=== PATIENT | male | born 1940 | race Caucasian/White ===

== ENCOUNTER 2018-03-10 16:37 | Observation (INO) | payer MEDICARE, OTHER ==
[2018-03-10] MEDS ORDERED: Diltiazem IV* 5 MG/ML 5 ML VIAL (for loading dose/IV Push) (25 MG) IV SLOW PU ONE (17:02)
[2018-03-10] MEDS: NS 0.9% 1000 ML* 2,000 ML IV ONE ×2 (17:29→17:50)
[2018-03-10 17:50] LABS: ABS Basophils 0.1 10^3/ul (0-0.2); ABS Eosinophils 0.3 10^3/ul (0-0.6); ABS Lymphocytes 3.2 10^3/ul (1.0-4.8); ABS Monocytes 0.8 10^3/ul (0-0.8); ABS Neutrophils 4.5 10^3/ul (1.5-7.7); ABS Nucleated RBC 0 10^3/ul; Eosinophil % 3.1 % (0-6); Hematocrit 45 % (42-52); Hemoglobin 15.4 g/dl (14.0-18.0); Lymphocyte % 36.3 % (25-47); Mean Corpuscular HGB Conc 34 g/dl (31-36); Mean Corpuscular Hemoglobin 32 pg (27-31); Mean Corpuscular Volume 93 fL (80-94); Mean Platelet Volume 8.3 um3 (7.4-10.4); Nucleated Red Blood Cells % 0; Platelet Count 211 10^3/ul (150-450); Red Blood Count 4.88 10^6/ul (4.0-5.4); Red Cell Distribution Width 13 % (10.5-15); White Blood Count 8.8 10^3/ul (3.5-10.8)
[2018-03-10 17:59] LABS: INR 0.91 (0.77-1.02)
--- NOTE | 2018-03-10 18:16 | RAD ---
Indication: Tachycardia. Comparison: No relevant prior exams available on the [facility] for comparison. Technique: Upright AP 1733 hours Report: Clear lungs and pleural spaces. Negative for pneumothorax. The heart, pulmonary vasculature, and mediastinal contours are unremarkable. Unremarkable osseous structures and soft tissue contours. IMPRESSION: No evidence for acute intrathoracic disease.
[2018-03-10 18:22] LABS: EGFR Non-African American 64.1 (>60)
[2018-03-10] MEDS ORDERED: Ondansetron ODT TAB* 4 MG PO PRN (19:48)
[2018-03-10] MEDS ORDERED: Potassium Chlor TAB* 20 MEQ TAB.ER PO ONE (19:48)
[2018-03-10] MEDS ORDERED: Acetaminophen TAB* 325 MG PO PRN (19:48)
[2018-03-10] MEDS ORDERED: Dextrose 50% Syringe 50 ML* 25 GM/50 ML SYRINGE IV PUSH PRN (19:48)
--- NOTE | 2018-03-10 21:48 | ED ---
Bro Garcia Stephanie, scribed for Rico Banks MD on 03/10/18 at 1703 . HPI Cardiac - HPI Summary HPI Summary: The pt is a 77 y/o M presenting to the ED with c/o intermittent palpitations that began earlier today. Symptoms include increased HR. He denies CP and SOB. The pt takes 2, 325 mg aspirin every 24 hours for fibromyalgia. - History of Current Complaint Stated Complaint: RAPID HR Time Seen by Provider: 03/10/18 16:51 Hx Obtained From: Patient Onset/Duration: Started Hours Ago, Still Present Timing: Intermittent Current Severity: Mild Pain Intensity: 0 Pain Scale Used: 0-10 Numeric Aggravating Factor(s): Nothing Alleviating Factor(s): Nothing Associated Signs and Symptoms: Positive: Palpitations, Other: - increased HR. Negative: Chest Pain, Shortness of Breath - Allergy/Home Medications Allergies/Adverse Reactions: Allergies Allergy/AdvReac Type Severity Reaction Status Date / Time bee venom protein (honey bee) Allergy Unknown Verified 03/10/18 16:56 Reaction Details Home Medications: Home Medications Aspirin TAB* [Aspirin 325 MG TAB*] 650 mg PO BID PRN 03/10/18 [History Confirmed 03/10/18] Cholecalciferol TAB* [Vitamin D TAB*] 1,000 unit PO DAILY 03/10/18 [History Confirmed 03/10/18] Multivitamins/Minerals TAB* [Theragran/minerals TAB*] 1 tab PO DAILY 03/10/18 [ History Confirmed 03/10/18] metFORMIN* [Glucophage 500 MG TAB *] 500 mg PO BID 03/10/18 [History Confirmed 03/10/18] PMH/Surg Hx/FS Hx/Imm Hx Endocrine/Hematology History: Reports: Hx Diabetes Cardiovascular History: Reports: Other Cardiovascular Problems/Disorders - murmur Musculoskeletal History: Reports: Hx Fibromyalgia Psychiatric History: Reports: Hx Post Traumatic Stress Disorder - Surgical History Surgery Procedure, Year, and Place: NONE - Family History Known Family History: Negative: Renal Disease - Social History Occupation: Employed Full-time Lives: With Family Review of Systems Negative: Fever Positive: Palpitations, Other - increased HR. Negative: Chest Pain Negative: Shortness Of Breath All Other Systems Reviewed And Are Negative: Yes Physical Exam - Summary Physical Exam Summary: General: well-appearing, no pain distress Skin: warm, color reflects adequate perfusion, dry Head: normal Eyes: EOMI, GLORIA ENT: normal Neck: supple, nontender Respiratory: CTA, breath sounds present Cardiovascular: rapid HR, irregularly irregular Abdomen: soft, nontender Bowel: present Musculoskeletal: normal, strength/ROM intact Neurological: normal, sensory/motor intact, A&O x3 Psychological: affect/mood appropriate Triage Information Reviewed: Yes Vital Signs On Initial Exam: Initial Vitals Resp 19 03/10/18 16:48 Vital Signs Reviewed: Yes Diagnostics - Vital Signs Vital Signs Temp Pulse Resp BP Pulse Ox 03/10/18 19:27 116 18 143/105 96 03/10/18 19:00 86 17 95 03/10/18 18:57 98 18 126/83 96 03/10/18 18:27 86 14 141/91 93 03/10/18 18:23 82 15 139/88 93 03/10/18 18:13 79 20 122/83 97 03/10/18 18:03 87 13 142/90 98 03/10/18 18:00 77 11 98 03/10/18 17:53 83 14 135/88 97 03/10/18 17:43 84 20 127/82 98 03/10/18 17:36 89 03/10/18 17:21 19 151/116 03/10/18 17:00 126 13 100 03/10/18 16:50 103 16 160/114 100 03/10/18 16:49 97.6 F 126 18 160/114 100 03/10/18 16:48 19 - Laboratory Lab Results: Lab Results 03/10/18 03/10/18 03/10/18 Range/Units 17:36 17:36 17:36 WBC (3.5-10.8) 10^3/ul RBC (4.0-5.4) 10^6/ul Hgb (14.0-18.0) g/dl Hct (42-52) % MCV (80-94) fL MCH (27-31) pg MCHC (31-36) g/dl RDW (10.5-15) % Plt Count (150-450) 10^3/ul MPV (7.4-10.4) um3 Neut % (Auto) (38-83) % Lymph % (Auto) (25-47) % Page % (Auto) (0-7) % Eos % (Auto) (0-6) % Baso % (Auto) (0-2) % Absolute Neuts (auto) (1.5-7.7) 10^3/ul Absolute Lymphs (auto) (1.0-4.8) 10^3/ul Absolute Monos (auto) (0-0.8) 10^3/ul Absolute Eos (auto) (0-0.6) 10^3/ul Absolute Basos (auto) (0-0.2) 10^3/ul Absolute Nucleated RBC 10^3/ul Nucleated RBC % INR (Anticoag Therapy) 0.91 (0.77-1.02) APTT 31.1 (26.0-36.3) seconds D-Dimer, Quantitative < 200 (Less Than 230) ng/mL Sodium 140 (139-145) mmol/L Potassium 3.7 (3.5-5.0) mmol/L Chloride 104 (101-111) mmol/L Carbon Dioxide 25 (22-32) mmol/L Anion Gap 11 (2-11) mmol/L BUN 18 (6-24) mg/dL Creatinine 1.11 (0.67-1.17) mg/dL Est GFR ( Amer) 82.4 (>60) Est GFR (Non-Af Amer) 64.1 (>60) BUN/Creatinine Ratio 16.2 (8-20) Glucose 110 H (70-100) mg/dL Lactic Acid (0.5-2.0) mmol/L Calcium 9.5 (8.6-10.3) mg/dL Magnesium 2.2 (1.9-2.7) mg/dL Total Bilirubin 0.50 (0.2-1.0) mg/dL AST 22 (13-39) U/L ALT 17 (7-52) U/L Alkaline Phosphatase 78 (34-104) U/L Total Creatine Kinase 41 (10-223) U/L CK-MB (CK-2) 2.0 (0.6-6.3) ng/mL Troponin I 0.05 H* (<0.04) ng/mL C-Reactive Protein < 1.00 (< 5.00) mg/L B-Natriuretic Peptide 153 H ( - 100) pg/mL Total Protein 8.0 (6.4-8.9) g/dL Albumin 4.4 (3.2-5.2) g/dL Globulin 3.6 (2-4) g/dL Albumin/Globulin Ratio 1.2 (1-3) Lipase 10 L (11.0-82.0) U/L TSH 1.94 (0.34-5.60) mcIU/mL Salicylates < 2.50 (<30) mg/dL Acetaminophen < 15 mcg/mL Serum Alcohol < 10 (<10) mg/dL 03/10/18 03/10/18 Range/Units 17:36 17:37 WBC 8.8 (3.5-10.8) 10^3/ul RBC 4.88 (4.0-5.4) 10^6/ul Hgb 15.4 (14.0-18.0) g/dl Hct 45 (42-52) % MCV 93 (80-94) fL MCH 32 H (27-31) pg MCHC 34 (31-36) g/dl RDW 13 (10.5-15) % Plt Count 211 (150-450) 10^3/ul MPV 8.3 (7.4-10.4) um3 Neut % (Auto) 51.1 (38-83) % Lymph % (Auto) 36.3 (25-47) % Page % (Auto) 8.8 H (0-7) % Eos % (Auto) 3.1 (0-6) % Baso % (Auto) 0.7 (0-2) % Absolute Neuts (auto) 4.5 (1.5-7.7) 10^3/ul Absolute Lymphs (auto) 3.2 (1.0-4.8) 10^3/ul Absolute Monos (auto) 0.8 (0-0.8) 10^3/ul Absolute Eos (auto) 0.3 (0-0.6) 10^3/ul Absolute Basos (auto) 0.1 (0-0.2) 10^3/ul Absolute Nucleated RBC 0 10^3/ul Nucleated RBC % 0 INR (Anticoag Therapy) (0.77-1.02) APTT (26.0-36.3) seconds D-Dimer, Quantitative (Less Than 230) ng/mL Sodium (139-145) mmol/L Potassium (3.5-5.0) mmol/L Chloride (101-111) mmol/L Carbon Dioxide (22-32) mmol/L Anion Gap (2-11) mmol/L BUN (6-24) mg/dL Creatinine (0.67-1.17) mg/dL Est GFR ( Amer) (>60) Est GFR (Non-Af Amer) (>60) BUN/Creatinine Ratio (8-20) Glucose (70-100) mg/dL Lactic Acid 1.7 (0.5-2.0) mmol/L Calcium (8.6-10.3) mg/dL Magnesium (1.9-2.7) mg/dL Total Bilirubin (0.2-1.0) mg/dL AST (13-39) U/L ALT (7-52) U/L Alkaline Phosphatase (34-104) U/L Total Creatine Kinase (10-223) U/L CK-MB (CK-2) (0.6-6.3) ng/mL Troponin I (<0.04) ng/mL C-Reactive Protein (< 5.00) mg/L B-Natriuretic Peptide ( - 100) pg/mL Total Protein (6.4-8.9) g/dL Albumin (3.2-5.2) g/dL Globulin (2-4) g/dL Albumin/Globulin Ratio (1-3) Lipase (11.0-82.0) U/L TSH (0.34-5.60) mcIU/mL Salicylates (<30) mg/dL Acetaminophen mcg/mL Serum Alcohol (<10) mg/dL Result Diagrams: 03/10/18 17:36 03/10/18 17:36 Lab Statement: Any lab studies that have been ordered have been reviewed, and results considered in the medical decision making process. - Radiology CXR Xray Interpretation: No Acute Changes Radiology Interpretation Completed By: Radiologist - No evidence for acute intrathoracic disease. ED physician has reviewed this report. - EKG 17:12 Cardiac Rate: Tachycardia - 138 BPM EKG Rhythm: Atrial Fibrillation - Rapid ST Segment: Normal Disposition - Course Course Of Treatment: ADMIT HOSPITALIST. CRITICAL CARE TIME LESS THAN 30 MINUTES. - Diagnoses Provider Diagnoses: New onset a-fib - Physician Notifications Discussed Care Of Patient With: Sara Reid Time Discussed With Above Provider: 18:40 Instructed by Provider To: Admit As Inpatient Discharge - Sign-Out/Discharge Documenting (check all that apply): Discharge/Admit/Transfer - Discharge Plan Condition: Stable Disposition: ADMITTED TO [facility] - Billing Disposition and Condition Condition: STABLE Disposition: [facility]P-[facility] [place] The documentation as recorded by the Bro terry Stephanie accurately reflects the service I personally performed and the decisions made by me, Rico Banks MD.
[2018-03-10] MEDS: Apixaban* 5 MG TAB PO SCH (22:03)
[2018-03-10] MEDS: Diltiazem TAB* 30 MG PO SCH (22:04)
[2018-03-11] MEDS: Diltiazem TAB* 30 MG PO SCH ×4 (01:32→18:27)
--- NOTE | 2018-03-11 04:21 | HP ---
CC: Luisana Viveros NP; Dr. Antonio Sanchez; Dr. Tang * HISTORY AND PHYSICAL: DATE OF ADMISSION: 03/10/18 PRIMARY CARE PROVIDER: Luisana Viveros NP and Dr. Atnonio Sanchez. CONSULTING STEAM [employer] G[employer] TURBINE ASSEMBLER: Dr. Tang. ATTENDING PHYSICIAN WHILE IN THE HOSPITAL: Dr. Karla West * (report dictated by Errol Lopez NP). CHIEF COMPLAINT: 1. Palpitations. 2. Rapid heart rate. HISTORY OF PRESENTING ILLNESS: Mr. Bourgeois is a 77-year-old male patient who carries a history of diabetes. He has a history of being worked up for fibromyalgia and a history of basal cell skin cancer. He comes into the ER today. He was at the [facility] today for a routine medical visit. He was noted there to tell his PCP that he was having some palpitations. On evaluation there, it was noted that his heart rate was quite fast. A 12-lead EKG was obtained and it was noted that he was in AFib with RVR. In talking with him, he says this episode started around 1600 when he was in the office, but he says he has had intermittent episodes for the last several weeks and they have mostly happened at night. He denies having any chest pain. He denies having any shortness of breath. No orthopnea. He denies any leg swelling. Denies any recent trips or travel. Denies having any shortness of breath with exertion or chest pain with exertion. He is fairly active. He can walk up a flight of stairs. He has not been having any chest discomfort. He has just been noticing palpitations sometimes at night and he was again found today to be in AFib with RVR. He was sent to the ER and because of this we were asked to evaluate for admission. PAST MEDICAL HISTORY: Significant for: 1. Diabetes. 2. Working diagnosis of fibromyalgia. 3. History of basal cell skin cancer. PAST SURGICAL HISTORY: 1. The patient has had an eye surgery. 2. He has had an appendectomy. HOME MEDICATIONS: According to the list obtained include: 1. Metformin 500 mg p.o. b.i.d. 2. Multivitamin 1 tablet daily. 3. Aspirin 650 mg p.o. twice a day as needed. 4. Vitamin D 1000 units p.o. daily. ALLERGIES: Allergies to medications include none. He is allergic to BEE VENOM. FAMILY HISTORY: Both his parents are diabetic. SOCIAL HISTORY: He works with [employer]. Surrogate decision maker is his . He does not smoke. He does not drink alcohol. REVIEW OF SYSTEMS: There is no documented fever. He denies having any significant weight change. There was no double vision. There was no ear discharge. Denies having any rhinorrhea. There was no sore throat. No thyroid enlargement. Denied any chest pain. There was no orthopnea. There was no nocturnal dyspnea. No abdominal pain, no nausea, no vomiting. No dysuria, no frequency. No seizure. No loss of consciousness. No pruritus and no skin ulcerations. Review of 14 systems completed, all others were negative. PHYSICAL EXAMINATION GENERAL: At this time, Mr. Bourgeois is a 77-year-old male patient, appears to be well nourished, well developed. He is sitting in the ED stretcher. He does not appear to be in acute distress. VITAL SIGNS: Blood pressure 126/83, his pulse was 100, respirations were 18, O2 sat 96%, temperature 97.6. HEENT: Head atraumatic and normocephalic. Eyes: EOMs are intact. Sclerae are anicteric and not pale. Throat: Oral mucosa appears to be moist. No oropharyngeal erythema. NECK: Supple. LUNGS: Clear to auscultation. No wheezes, rales, or rhonchi. HEART: Sounds S1, S2. Irregularly irregular rate. He did have a grade 2 to 3/ 6 systolic murmur in the aortic listening area. No rubs or gallops. ABDOMEN: Soft, it was flat, nontender. Bowel sounds were present. EXTREMITIES: Pulses were 2+ throughout. Moving all 4 extremities with 5/5 strength. NEUROLOGICAL: The patient is awake, he is alert, he is oriented x3. Tongue midline. Supervisor [employer] Drilling were equal. He had no gross focal deficits. SKIN: Intact. DIAGNOSTIC STUDIES/LABORATORY DATA: WBC of 8.9, RBC of 4.8, hemoglobin of 15.4 , hematocrit of 45, and platelet count of 211. INR was 0.91, PTT of 31.1, D- dimer less than 200. The sodium was 140, potassium was 3.7, chloride of 104, bicarb of 25, BUN 18, creatinine 1.11, glucose of 110, lactate 1.7, calcium 9.5 , mag 2.0. Total bili 0.5, AST 23, ALT 17, alk phos 78. CK 41, CK-MB 2, troponin 0.05, CRP less than 1. BNP 153. Albumin of 4.4. TSH was normal. Lipase was normal. Toxicology was negative. He did have a chest x-ray obtained today, impression: No evidence for acute intrathoracic disease. He had an EKG obtained today, I do not have a previous workup for comparison, but it did show atrial fibrillation with a rate of 138. No ST elevations or T-wave inversions were noted. Old medical records were reviewed. ASSESSMENT AND PLAN: Mr. Bourgeois is a 77-year-old male patient coming into the emergency room today with complaints of palpitations. On evaluation found to be in atrial fibrillation with rapid ventricular response. He will be admitted under observation status for: 1. Atrial fibrillation with rapid ventricular response. Etiology is unclear. I am going to try to get his potassium around 4. Magnesium was stable. I have made him n.p.o. for possible TIP-guided cardioversion in the morning. I did touch base with Cardiology. I am going to go ahead and put him on diltiazem 30 mg every 6 hours. His heart rate now is around 100 with IV bolus. I am hopeful with p.o. medications, this will continue to keep him in a controlled rate. We will start him on Eliquis. Again, we will order the possible TIP- guided cardioversion tomorrow. In addition to this, we will go ahead and make him n.p.o. after midnight and we will continue to follow. 2. Elevated troponin. This is probably demand ischemia from the atrial fibrillation with rapid ventricular response. We will trend these. 3. Diabetes. He will be on lispro sliding scale. 4. History of fibromyalgia, which is a working diagnosis. He has got Rheumatology followup for 03/20/18; he will keep this. 5. Skin cancer. Follow up with primary care physician. 6. DVT prophylaxis. He will be on Eliquis. 7. Code status: Full code. 8. Fluids, electrolytes, nutrition: He can have a heart healthy diet up until midnight and he will be n.p.o. after midnight. TIME SPENT: On the admission was 60 minutes; greater than half the time was spent [id number] with the patient obtaining my history and physical, other half the time was spent going over the plan of care with the patient and implementing plan of care. I did discuss the plan of care with my attending, Dr. West; she is in agreement. ERROL LOPEZ, LAYLA [id number]/[facility] #: [id number] FLY
[2018-03-11] MEDS: Insulin LISPRO* 1 UNITS UNIT SUBCUT SCH ×3 (07:26→19:49)
[2018-03-11 07:32] LABS: ABS Basophils 0.1 10^3/ul (0-0.2); ABS Eosinophils 0.5 10^3/ul (0-0.6); ABS Lymphocytes 3.9 10^3/ul (1.0-4.8); ABS Monocytes 0.8 10^3/ul (0-0.8); ABS Neutrophils 4.1 10^3/ul (1.5-7.7); ABS Nucleated RBC 0 10^3/ul; Eosinophil % 4.9 % (0-6); Hematocrit 39 % (42-52); Hemoglobin 13.3 g/dl (14.0-18.0); Lymphocyte % 41.7 % (25-47); Mean Corpuscular HGB Conc 34 g/dl (31-36); Mean Corpuscular Hemoglobin 31 pg (27-31); Mean Corpuscular Volume 91 fL (80-94); Mean Platelet Volume 8.2 um3 (7.4-10.4); Nucleated Red Blood Cells % 0.1; Platelet Count 188 10^3/ul (150-450); Red Blood Count 4.26 10^6/ul (4.0-5.4); Red Cell Distribution Width 13 % (10.5-15); White Blood Count 9.3 10^3/ul (3.5-10.8)
[2018-03-11 07:51] LABS: EGFR Non-African American 70.6 (>60)
[2018-03-11 07:58] LABS: INR 1.04 (0.77-1.02)
[2018-03-11] MEDS: Apixaban* 5 MG TAB PO SCH ×2 (08:45→20:21)
[2018-03-11 10:00] LABS: Urine Appearance Clear; Urine Blood Negative (Negative); Urine Color Straw; Urine Ketones Negative (Negative); Urine Protein Negative (Negative); Urine Specific Gravity 1.005 (1.010-1.030); Urine Urobilinogen Negative (Negative)
--- NOTE | 2018-03-11 18:19 | PN ---
Subjective Date of Service: 03/11/18 Interval History: Pt felt palpitations when seeing his PCP at [facility], denies CP or SOB. Recalls feeling similar palpitations when he goes to bed several time in the past. Is unsure how long those episodes have lasted in the past. Has good exercise tolerance. Has a heart murmur, but not aware of what valve is affected. Objective Active Medications: Acetaminophen (Tylenol Tab*) 650 mg PO Q4H PRN PRN Reason: FEVER/PAIN Apixaban (Eliquis*) 5 mg PO BID [facility] Last Admin: 03/11/18 08:45 Dose: 5 mg Dextrose (D50w Syringe 50 Ml*) 12.5 gm IV PUSH .FOR FS < 60 - SS PRN PRN Reason: FS < 60 Diltiazem HCl (Cardizem Tab*) 30 mg PO Q6HR [facility] Stop: 03/11/18 23:59 Last Admin: 03/11/18 12:21 Dose: 30 mg Diltiazem HCl (Cardizem Cd Cap*) 120 mg PO DAILY [facility] Insulin Human Lispro (Humalog*) 0 units SUBCUT AC [facility] PRN Reason: Protocol Last Admin: 03/11/18 12:09 Dose: Not Given Ondansetron HCl (Zofran Odt Tab*) 4 mg PO Q6H PRN PRN Reason: NAUSEA Vital Signs - 8 hr 03/11/18 11:08 Temperature 98.0 F Pulse Rate 73 Respiratory 16 Rate Blood Pressure 113/71 (mmHg) O2 Sat by Pulse 98 Oximetry Oxygen Devices in Use Now: None Appearance: 77 yo M in nAD, AAOx3, [place] Eyes: No Scleral Icterus, PERRLA Ears/Nose/Mouth/Throat: NL Teeth, Lips, Gums, Mucous Membranes Moist Neck: NL Appearance and Movements; NL JVP, Trachea Midline Respiratory: Symmetrical Chest Expansion and Respiratory Effort, Clear to Auscultation Cardiovascular: RRR, - - 2/6 ELROY at LUSB Abdominal: NL Sounds; No Tenderness; No Distention, No Hepatosplenomegaly Lymphatic: No Cervical Adenopathy Extremities: No Edema, No Clubbing, Cyanosis Skin: No Rash or Ulcers, No Nodules or Sclerosis Neurological: Alert and Oriented x 3, NL Muscle Strength and Tone Result Diagrams: 03/11/18 07:24 03/11/18 07:24 Additional Lab and Data: Lab Results 03/10/18 03/10/18 03/10/18 Range/Units 17:36 17:36 17:36 WBC (3.5-10.8) 10^3/ul RBC (4.0-5.4) 10^6/ul Hgb (14.0-18.0) g/dl Hct (42-52) % MCV (80-94) fL MCH (27-31) pg MCHC (31-36) g/dl RDW (10.5-15) % Plt Count (150-450) 10^3/ul MPV (7.4-10.4) um3 Neut % (Auto) (38-83) % Lymph % (Auto) (25-47) % [place] % (Auto) (0-7) % Eos % (Auto) (0-6) % Baso % (Auto) (0-2) % Absolute Neuts (auto) (1.5-7.7) 10^3/ul Absolute Lymphs (auto) (1.0-4.8) 10^3/ul Absolute Monos (auto) (0-0.8) 10^3/ul Absolute Eos (auto) (0-0.6) 10^3/ul Absolute Basos (auto) (0-0.2) 10^3/ul Absolute Nucleated RBC 10^3/ul Nucleated RBC % INR (Anticoag Therapy) 0.91 (0.77-1.02) APTT 31.1 (26.0-36.3) seconds D-Dimer, Quantitative < 200 (Less Than 230) ng/mL Sodium 140 (139-145) mmol/L Potassium 3.7 (3.5-5.0) mmol/L Chloride 104 (101-111) mmol/L Carbon Dioxide 25 (22-32) mmol/L Anion Gap 11 (2-11) mmol/L BUN 18 (6-24) mg/dL Creatinine 1.11 (0.67-1.17) mg/dL Est GFR ( Amer) 82.4 (>60) Est GFR (Non-Af Amer) 64.1 (>60) BUN/Creatinine Ratio 16.2 (8-20) Glucose 110 H (70-100) mg/dL Lactic Acid (0.5-2.0) mmol/L Calcium 9.5 (8.6-10.3) mg/dL Magnesium 2.2 (1.9-2.7) mg/dL Total Bilirubin 0.50 (0.2-1.0) mg/dL AST 22 (13-39) U/L ALT 17 (7-52) U/L Alkaline Phosphatase 78 (34-104) U/L Total Creatine Kinase 41 (10-223) U/L CK-MB (CK-2) 2.0 (0.6-6.3) ng/mL Troponin I 0.05 H* (<0.04) ng/mL C-Reactive Protein < 1.00 (< 5.00) mg/L B-Natriuretic Peptide 153 H ( - 100) pg/mL Total Protein 8.0 (6.4-8.9) g/dL Albumin 4.4 (3.2-5.2) g/dL Globulin 3.6 (2-4) g/dL Albumin/Globulin Ratio 1.2 (1-3) Lipase 10 L (11.0-82.0) U/L TSH 1.94 (0.34-5.60) mcIU/mL Salicylates < 2.50 (<30) mg/dL Acetaminophen < 15 mcg/mL Serum Alcohol < 10 (<10) mg/dL 03/10/18 03/10/18 Range/Units 17:36 17:37 WBC 8.8 (3.5-10.8) 10^3/ul RBC 4.88 (4.0-5.4) 10^6/ul Hgb 15.4 (14.0-18.0) g/dl Hct 45 (42-52) % MCV 93 (80-94) fL MCH 32 H (27-31) pg MCHC 34 (31-36) g/dl RDW 13 (10.5-15) % Plt Count 211 (150-450) 10^3/ul MPV 8.3 (7.4-10.4) um3 Neut % (Auto) 51.1 (38-83) % Lymph % (Auto) 36.3 (25-47) % [place] % (Auto) 8.8 H (0-7) % Eos % (Auto) 3.1 (0-6) % Baso % (Auto) 0.7 (0-2) % Absolute Neuts (auto) 4.5 (1.5-7.7) 10^3/ul Absolute Lymphs (auto) 3.2 (1.0-4.8) 10^3/ul Absolute Monos (auto) 0.8 (0-0.8) 10^3/ul Absolute Eos (auto) 0.3 (0-0.6) 10^3/ul Absolute Basos (auto) 0.1 (0-0.2) 10^3/ul Absolute Nucleated RBC 0 10^3/ul Nucleated RBC % 0 INR (Anticoag Therapy) (0.77-1.02) APTT (26.0-36.3) seconds D-Dimer, Quantitative (Less Than 230) ng/mL Sodium (139-145) mmol/L Potassium (3.5-5.0) mmol/L Chloride (101-111) mmol/L Carbon Dioxide (22-32) mmol/L Anion Gap (2-11) mmol/L BUN (6-24) mg/dL Creatinine (0.67-1.17) mg/dL Est GFR ( Amer) (>60) Est GFR (Non-Af Amer) (>60) BUN/Creatinine Ratio (8-20) Glucose (70-100) mg/dL Lactic Acid 1.7 (0.5-2.0) mmol/L Calcium (8.6-10.3) mg/dL Magnesium (1.9-2.7) mg/dL Total Bilirubin (0.2-1.0) mg/dL AST (13-39) U/L ALT (7-52) U/L Alkaline Phosphatase (34-104) U/L Total Creatine Kinase (10-223) U/L CK-MB (CK-2) (0.6-6.3) ng/mL Troponin I (<0.04) ng/mL C-Reactive Protein (< 5.00) mg/L B-Natriuretic Peptide ( - 100) pg/mL Total Protein (6.4-8.9) g/dL Albumin (3.2-5.2) g/dL Globulin (2-4) g/dL Albumin/Globulin Ratio (1-3) Lipase (11.0-82.0) U/L TSH (0.34-5.60) mcIU/mL Salicylates (<30) mg/dL Acetaminophen mcg/mL Serum Alcohol (<10) mg/dL Assess/Plan/Problems-Billing Assessment: 77 yo M with h/o DM2, PTSD presents with a. fib-new onset - Patient Problems (1) Atrial fibrillation with rapid ventricular response Comment: resolved after cardizem tx. Cont Eliquis and Cardizem will be transitioned to CD in AM. D/w pt's and NOAC's vs Coumadin and pt and agree with Eliquis. (2) Heart murmur Comment: Echo pending (3) DM2 (diabetes mellitus, type 2) Comment: controlled on metformin as outpatient. HbA1C 6 Cont ISS for now when in hospital (4) Troponin level elevated Comment: May be related to demend ischemia secondary to a. fib with RVR. stress test ordered in aM (5) DVT prophylaxis Comment: Abbeyquis Status and Disposition: OBV
--- NOTE | 2018-03-11 19:03 | ECHO ---
Patient: CIARA LEYVA [facility] Rec#: [id number] : 1940 Date: 03/11/2018 Age: 77y Height: 175.3 cm / 69.0 in Weight: 89.8 kg / 197.9 lbs Sex: M BSA: 2.06 Room#: [facility] Admit Date#: 03/10/2018 Type: Inpatient Referring: Sara Reid MD Reading: Mary Deutsch MD Chemical Mixer: Nancy Trevizo RN RDCS CC: Luisana Viveros Transthoracic Echocardiogram Indication: Atrial fibrillation BP: 113/71 HR: 77 Rhythm: NSR Findings History: DM, HLD, cardiac murmur, fibromyalgia, PTSD Technical Comments: The study quality is fair. The study is technically limited due to patient body habitus. Left Ventricle: The left ventricular chamber size is normal. Mild concentric left ventricular hypertrophy is observed. There is increased basal septal hypertrophy noted without evidence of an increased gradient across the left ventricular outflow tract. The septal knuckle measures 1.4 cm. Global left ventricular wall motion and contractility are within normal limits. There is normal left ventricular systolic function. The estimated ejection fraction is 60-65%. The assessment of diastolic function is non-diagnostic. Left Atrium: The left atrial chamber size is normal. Right Ventricle: The right ventricular cavity size is normal. The right ventricular global systolic function is normal. Right Atrium: The right atrial cavity size is normal. Aortic Valve: The aortic valve is trileaflet. The aortic valve leaflets are moderately thickened. Systolic excursion of the aortic valve cusps is reduced. There is no evidence of aortic regurgitation. There is moderate to severe aortic stenosis. The mean gradient of the aortic valve is 31.9 mmHg. The peak instantaneous gradient of the aortic valve is 49.3 mmHg. The aortic valve area, by peak velocities, is calculated at 0.8 cm2. The aortic valve area, by VTI's, is calculated at 0.7 cm2. The dimensionless index is 0.24-0.26. Highest aortic valve velocity was acquired with Pedoff in apical position. Mitral Valve: There is posterior mitral annular calcification. The mitral valve leaflets are mildly thickened. There is mild mitral regurgitation. There is no evidence of mitral stenosis. Tricuspid Valve: The tricuspid valve leaflets are normal. There is mild to moderate tricuspid regurgitation. There is evidence of mild pulmonary hypertension. There is no tricuspid stenosis. Pulmonic Valve: The pulmonic valve structure is not well visualized. There is a trace pulmonic regurgitation. There is no pulmonic stenosis. Pericardium: There is no significant pericardial effusion. A pericardial fat pad is visualized. Aorta: There is no dilatation of the ascending aorta. There is no dilatation of the aortic arch. There is no dilation of the aortic root. Pulmonary Artery: The main pulmonary artery is not well visualized. Venous: The inferior vena cava is dilated. There is a greater than 50% respiratory change in the inferior vena cava dimension. Conclusions Mild concentric left ventricular hypertrophy is observed. The septal knuckle measures 1.4 cm. Global left ventricular wall motion and contractility are within normal limits. The estimated ejection fraction is 60-65%. The right ventricular global systolic function is normal.. There is moderate to severe aortic stenosis. The mean gradient of the aortic valve is 31.9 mmHg. The aortic valve area, by VTI's, is calculated at 0.7 cm2. The dimensionless index is 0.24-0.26. There is mild mitral regurgitation. There is mild to moderate tricuspid regurgitation. There is evidence of mild pulmonary hypertension: 37 mmHg. No prior echo to compare. Measurements Name Value Normal Range RVDdMajor (2D) 3.4 cm (2.2 - 4.4) RAd ISD 4CH 4.8 cm (3.4 - 4.9) RA (A4C)W 4.5 cm (2.9 - 4.6) IVSd (2D) 1.2 cm (0.6 - 1) LVPWd (2D) 1.2 cm (0.6 - 1) LVIDd (2D) 4.1 cm (3.6 - 5.4) LVIDs (2D) 2.1 cm - Aortic Annulus 2 cm (1.4 - 2.6) Ao root diameter (2D) 3.2 cm (2.1 - 3.5) Ascending Ao 3.3 cm (2.1 - 3.4) Aortic arch 3 cm (1.8 - 3.4) LA dimension (AP) 2D 3.6 cm (2.3 - 3.8) LAd ISD 4CH 5.2 cm (2.9 - 5.3) LA ISD 4CH W 4.6 cm (2.5 - 4.5) Name Value Normal Range LA ESV SP 4CH (A/L) 62 ml - LA ESV SP 2CH (A/L) 64 ml - LA ESV BP (A/L) 67 ml - LA ESV BP (A/L) index 32.7 ml/m2 - LA ESV SP 4CH (MOD) 55 ml - LA ESV SP 2CH (MOD) 58 ml - Name Value Normal Range MV E-wave Vmax 1.2 m/sec - MV deceleration time 244 msec - MV A-wave Vmax 0.97 m/sec - MV E:A ratio 1.3 ratio - LV septal e' Vmax 0.07 m/sec - LV lateral e' Vmax 0.09 m/sec - LV E:e' septal ratio 17.1 ratio - LV E:e' lateral ratio 13.3 ratio - Name Value Normal Range AV Vmax 3.5 m/sec - AV VTI 81.8 cm - AV peak gradient 49.3 mmHg - AV mean gradient 31.9 mmHg - LVOT diameter 2 cm - LVOT Vmax 0.92 m/sec - LVOT VTI 19.3 cm - LVOT peak gradient 3.4 mmHg - LVOT mean gradient 1.7 mmHg - DOI (VTI) 0.24 ratio - DOI (Vmax) 0.26 ratio - SV LVOT 60.6 ml - CO LVOT 4.7 l/min - Cardiac index 2.3 l/min/m2 - HENRI (continuity Vmax) 0.8 cm2 - HENRI (continuity VTI) 0.7 cm2 - JANKI Vmax 0.49 m/sec - Name Value Normal Range TR Vmax 2.7 m/sec - TR peak gradient 29 mmHg - RAP 8 mmHg - RVSP 37 mmHg - IVC diameter 2.5 cm - Name Value Normal Range PV Vmax 0.85 m/sec -
--- NOTE | 2018-03-12 06:16 | CONS ---
CC: Luisana Viveros NP, [facility]; Dr. Antonio Sanchez CARDIOLOGY CONSULTATION: DATE OF CONSULT: 03/11/18 REASON FOR CONSULT: Paroxysmal atrial fibrillation. CHIEF COMPLAINT: Pounding of the chest. HISTORY OF PRESENT ILLNESS: Mr. Bourgeois is a 77-year-old who told me he was at the [facility] for a routine visit today. He put his hand on his chest while there and noted that he had a prominent rapid pounding type of heartbeat and he asked his caregiver Luisana Viveros about it and found he was in atrial fibrillation with a rapid ventricular rate. The patient noticed some awareness of rapid pounding in the heart at night when he lies down for several weeks. The patient denies any exercise intolerance or changes, orthopnea, or PND, and he denies any recent changes in his medication or routine. The patient denies any active smoking, alcohol intake, or dfwa-vgx-zojtosm medications around the time of this event. PAST MEDICAL HISTORY: The patient has a past medical history of: 1. Diabetes. 2. 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 3. PTSD. 4. Murmur heard by Luisana Viveros. PAST SURGICAL HISTORY: Includes eye surgery and appendectomy. MEDICATIONS: Outpatient medications include: 1. Metformin. 2. MultiVites. 3. Aspirin. 4. Vitamin D. Current inpatient medications include: 1. Tylenol. 2. Eliquis 5 mg b.i.d. 3. Cardizem 30 mg q.6 hours. 4. Cardizem CD 120 mg a day. 5. Humalog insulin. 6. Zofran p.r.n. 7. He has had potassium replacement. ALLERGIES: Include BEE VENOM. FAMILY HISTORY: Significant that both parents are . He has 1 brother with a pacemaker and possibly with AFib. SOCIAL HISTORY: The patient was in the [employer]. Nonsmoker, nondrinker. Lives with his . REVIEW OF SYSTEMS: Significant that he says he does not sleep well, but relates this to his PTSD, says this is mild. He denies any history of apnea or snoring. He denies chest pain, pressure, heaviness, orthopnea, PND, recent cough , fevers, chills, sweats, changes in bowel or habit habits. No recent weight gain or loss. All other 14-point review of systems was unremarkable. PHYSICAL EXAM: On exam, the patient is 5 feet 9 inches, weighs 198 pounds with a BMI of 29. Vital Signs: On admission yesterday, blood pressure 160/114, pulse was 135, oxygen saturation 100%, and afebrile. Current vital signs: In sinus rhythm, blood pressure 113/70, pulse is 73, respiratory rate 16, temperature 98.0. General Appearance: Somewhat overweight, older gentleman lying at 5 degrees, in no acute distress. Psychologically, pleasant and cooperative. Neurologically, a bit hard of hearing but awake, alert, and oriented to person, place, and time. Cranial nerves II through XII grossly intact. Grossly normal sensory and motor function in the upper and lower extremities. He moves normally in the bed. Skin: Age appropriate changes. Warm, dry. No cyanosis or rashes. HEENT: Pupils are equal and round. Mucous membranes moist. Neck: Without increased JVP appreciated. No lymphadenopathy or thyromegaly. Breath sounds clear with good effort. No wheezes, rales, or rhonchi. Coronary: S1, S2, regular with a late peaking systolic murmur heard best in the upper sternal border with radiation across the precordium. S2 is heard. Abdomen: Overweight, active bowel sounds, soft, nontender. No hepatosplenomegaly, masses, or bruits. He has strong femoral pulses free of bruits. Lower extremities are warm and free of edema. DIAGNOSTIC STUDIES/LAB DATA: White count 9.3, hemoglobin 13.3, hematocrit 39, platelets 188, mild increase in monos. INR 1.04, PTT 31. Sodium 139, potassium 4.3, chloride 111, bicarb 23, glucose 100, BUN 16, creatinine 1.01. Hemoglobin A1c of 6. Calcium 8.9. Magnesium 2.0, AST 22, ALT 17. Troponin #1 , 0.05; troponin #2, 0.06; troponin #3, 0.06; and troponin #4, 0.04. Total cholesterol 167, triglycerides 189, LDL cholesterol 100, and HDL cholesterol 29. TSH 1.94. Urinalysis unremarkable. Toxicology was negative for salicylates, acetaminophen or alcohol. The patient's echocardiogram showed left ventricular hypertrophy with an ejection fraction of 60% to 65% with oflacvmp-to-stgezg aortic stenosis, mean gradient 32 mmHg, aortic valve area 0.7 cm squared and dimensionless index 0.24 to 0.26, mild mitral insufficiency, bkse-vd-pjxdysyd tricuspid insufficiency, and PA pressure 37 mmHg. ECG on admission to the ED on 03/10/18 at 1700 showed atrial fibrillation with a ventricular rate of 138 beats per minute, QRS axis of +30, normal intraventricular conduction times, and nonspecific unremarkable ST changes. A 12-lead ECG done this morning at 0631, 03/11/18, shows normal sinus rhythm at 75 beats per minute, QRS axis +30, normal AV and IV conduction times, and normal ST. Chest x-ray report from 03/10/18 showed no acute disease. IMPRESSION AND PLAN: In summary, Mr. Bourgeois is a 77-year-old gentleman who was admitted with atrial fibrillation with a rapid ventricular rate with only mild symptoms and he converted on his own. He has hsttlrmk-kd-xmxxqz aortic valve stenosis and left ventricular hypertrophy. With respect to the atrial fibrillation, I agree with the initiation of anticoagulation as the patient's CHADS score is at least 2 based on age and hypertension. Addition of regular calcium channel dajuan for control of blood pressure and ectopy I think is a good idea and could be continued, although a beta-dajuan would be another option and may be better tolerated with aortic stenosis. In terms of factors that contribute to his atrial fibrillation, they include his age, likely his valvular heart disease as well. For now, we can try calcium and/or beta-blockers with Eliquis, but if he has recurrent atrial fibrillation as an outpatient, a stronger antiarrhythmic may need to be considered. With respect to the aortic stenosis, it is not critical but this gentleman's valve is getting quite tight. His dimensionless index is at criteria for replacement. The patient's elevated troponins are noted. It could represent underlying atherosclerotic heart disease but could also represent decreased cardiac output and inadequate cardiovascular perfusion due to a combination of atrial fibrillation and aortic stenosis. Going forward in addition to the above, I recommend a stress test not only to look for the possibility of ischemia but also to look at the patient's blood pressure response with his aortic stenosis to ensure that it is increasing. If he has a drop in blood pressure with his usual activity, this would support earlier valve replacement. Additional recommendations can be made following his clinical course and response to the above medication adjustments. [id number]/[facility] #: [id number] FLY
[2018-03-12] MEDS: Insulin LISPRO* 1 UNITS UNIT SUBCUT SCH ×2 (08:14→12:14)
[2018-03-12] MEDS: Apixaban* 5 MG TAB PO SCH (08:24)
[2018-03-12] MEDS ORDERED: Diltiazem CD CAP* 120 MG PO SCH (09:00)
[2018-03-12] MEDS ORDERED: Metoprolol Succinate XL TAB* 25 MG PO SCH (09:00)
--- NOTE | 2018-03-12 11:06 | RAD ---
Edited for charges. INDICATION: Elevated troponins. COMPARISON: There are no prior studies available for comparison. Technique: A single day myocardial perfusion stress study was performed. Initially a resting study was performed. The patient was given an intravenous injection of 10.2 mCi of technetium 99m tetrofosmin and and the heart was imaged in multiple projections. The patient returned later in the day and under the direction of Dr. Nicholson, the patient was exercised to a peak heart rate of 133 beats per minute which was 94 % of the maximum predicted heart rate. Subsequently the patient was given intravenous injection of 25.4 mCi of technetium 99m tetrofosmin and the heart was imaged in multiple projections. Images were reconstructed in the axial, sagittal and coronal planes and in a 3- D format. FINDINGS: There appears to be normal wall motion and myocardial thickening. The left ventricular ejection fraction was calculated to be 63%. No significant focal perfusion defects are seen. IMPRESSION: NO EVIDENCE FOR INFARCT OR ISCHEMIA. ASSESSMENT: Low risk. Based on imaging criteria from ACC/AHA 2002 Guideline Update for the Management of Patients With Chronic Stable Angina Table 23. Noninvasive Risk Stratification. MTDD
[2018-03-12 12:17] VITALS: BP 136/78
--- NOTE | 2018-03-13 05:16 | DS ---
CC: Luisana Viveros NP; Dr. Antonio Sanchez, [place], [place] * DISCHARGE SUMMARY: DATE OF ADMISSION: 03/10/18 DATE OF DISCHARGE: 03/12/18 PRIMARY CARE PROVIDER: Luisana Viveros NP. DISCHARGE DIAGNOSIS: 1. Atrial fibrillation with rapid ventricular response. Patient is converted to sinus rhythm after treatment with Cardizem. 2. Sehpddhl-df-bihmwn aortic stenosis. SECONDARY DIAGNOSES: 1. Diabetes type 2. 2. History of fibromyalgia. 3. History of basal cell skin cancer. 4. History of eye surgery. 5. Appendectomy. MEDICATIONS AT DISCHARGE: Include: 1. Metformin 500 mg b.i.d. 2. Multivitamins 1 tablet daily. 3. Vitamin D 1000 units daily. 4. Eliquis 5 mg b.i.d. 5. Toprol-XL 25 mg daily. Patient is also advised to use instead of 2 tablets of aspirin that he was before for his pain to switch to Tylenol up to 1000 mg twice a day for his chronic pain. LABORATORY DATA AND STUDIES PERFORMED DURING THE HOSPITAL STAY: Included: On , white blood cell count of 9.3, hemoglobin of 13.3, hematocrit 39, MCV of 91, and platelets of 188. The D-dimer was below 200 at admission. On , sodium of 139, potassium 4.3, chloride 111, carbon dioxide 23, BUN 16, creatinine 1.02. Patient's troponin was ranging from 0.04 to 0.06. Patient's hemoglobin A1c was 6.0. Cholesterol profile showed triglycerides of 189, total cholesterol of 167, LDL of 100, HDL of 29. Patient's TSH was 1.9, documented on 03/10/18. Patient's magnesium level was 2.2 at admission. CONSULTATIONS DURING THE HOSPITAL STAY: Included Dr. Deutsch from Cardiology. Patient's transesophageal echocardiogram obtained on 03/11/18 showed mild left concentric LVH with a septal knuckle measuring 1.4 cm. Global left ventricular wall motion and contractility within normal limits with EF of 60% to 65%. The mean gradient of the aortic valve is 31.9 mmHg. There is aylamiyo-oe-lvkhic aortic stenosis. The aortic valve area calculated at 0.7 cm squared. The dimension index is 0.24 to 0.26. There was mild mitral regurgitation and moderate tricuspid regurgitation and mild pulmonary hypertension at 37 mmHg. Cardiac stress test documented on 03/12/18 showed no evidence of infarct or ischemia, low risk with EF at stress calculated at 63%. The treadmill portion of the stress test also showed good exercise tolerance in the lower limit but aches in joints and no evidence of ischemic changes on the EKG. HOSPITALIZATION COURSE: Adan Bourgeois is a 77-year-old male who was for his routine 6 months appointment at the [facility] with Luisana Viveros NP, when he was noted to have palpitations and his EKG showed atrial fibrillation with rapid ventricular response in the 150s. Patient stated that he would have palpitations like that occasionally for the past several months at least. He was unsure of the duration. He never complained of chest pain. He presented to the ED with AFib with rapid ventricular response, was placed on IV Cardizem and then on p.o. Cardizem. He converted shortly after admission to normal sinus rhythm. He was noted to have significant murmur and his echocardiogram showed xogesqab-ub-gqhhlo aortic stenosis with calculated aortic valve area of 0.7 cm squared. Patient's troponins were mildly elevated at 0.06. Due to that as well as due to severe aortic stenosis, patient underwent treadmill stress test, which actually showed a fair exercise capacity with no evidence of ischemia. Patient was seen by Dr. Deutsch in consultation who recommended either beta dajuan or calcium channel dajuan as well as anticoagulation due to patient's CHADS score of 2. Patient was offered Coumadin versus novel anticoagulants and chose Eliquis. He was started on Eliquis at admission, did very well with that and he is going to be discharged home with Eliquis. He used to use double dose of aspirin a day for his fibromyalgia, which he was advised to stop and use Tylenol instead. Due to his severe aortic stenosis as well as new onset of atrial fibrillation, patient is recommended to follow up with his environmental technical officer of his choice. Patient is also advised to follow up with Luisana Viveros as well as Dr. Antonio Sanchez within approximately 1 week. PHYSICAL EXAMINATION AT THE TIME OF DISCHARGE: Blood pressure 136/78, heart rate of 77 and regular, respiratory rate 16, oxygen saturation 98% on room air, temperature 98.7. General: Patient is a very pleasant 77-year-old male who is in no acute distress. Alert, awake, and oriented x3. HEENT: Head: Atraumatic , normocephalic. Eyes: Pupils are equal and reactive to light and accommodation. Oropharynx clear. Mucosa moist. Neck: Supple. No JVD, no bruit bilaterally. Cardiovascular: Regular rate and rhythm with 2/6 systolic ejection murmur noted on auscultation of the left upper sternal border. Respiratory: Clear to auscultation bilaterally. Abdomen: Soft, nontender. Bowel sounds present in all 4 quadrants. Extremities: There is no edema. Pulses are +2 bilaterally. No clubbing or cyanosis. Neuro Evaluation: Speech clear. Cranial nerves II through XII grossly intact. Motor strength is 5/5 bilaterally. Please note that this is a short summary of patient's hospitalization. Please refer to further medical records for details. TIME SPENT: Approximately 35 minutes was spent on patient's discharge. [id number]/[facility] #: [id number] MTDD
== END 2018-03-12 14:21 | disposition home or self-care (01) ==
LOC: ED 16:37 → MEDTELE 19:40
PROVIDERS: ADMIT Pediatrics; ATTEND Internal Medicine
DX: I48.0 Paroxysmal atrial fibrillation (principal); Z79.01 Long term (current) use of anticoagulants; I35.0 Nonrheumatic aortic (valve) stenosis; E11.9 Type 2 diabetes mellitus without complications; Z87.39 Personal history of other diseases of the musculoskeletal system and connective tissue; Z85.828 Personal history of other malignant neoplasm of skin; Z98.890 Other specified postprocedural states; Z90.89 Acquired absence of other organs; F43.10 Post-traumatic stress disorder, unspecified; Z79.82 Long term (current) use of aspirin; R01.1 Cardiac murmur, unspecified; R79.89 Other specified abnormal findings of blood chemistry
CPT/HCPCS: 36415; 71045; 78452; 80048; 80053; 80061; 80320; 80329; 81003; 82550; 82553; 83036; 83605; 83690; 83735; 83880; 84443; 84484; 85025; 85379; 85610; 85730; 86140; 86618; 93005; 93017; 93306; 96361; 96374; 99284; A9270-GY; A9502; G0378; G0480